=== PATIENT | female | born 2005 | race Caucasian/White ===

== ENCOUNTER 2024-01-06 13:31 | Emergency (ER) | payer BC, OTHER ==
--- NOTE | 2024-01-06 15:49 | ED ---
URI HPI - General Chief Complaint: Upper Respiratory Infection Stated Complaint: congestion Time Seen by Provider: 01/06/24 15:09 Source: patient, RN notes reviewed Mode of arrival: ambulatory Limitations: no limitations - History of Present Illness Initial Comments: This is a 18-year-old female who presents to the emergency department for URI symptoms. Reports coughing, congestion, nausea, and vomiting starting 3 days ago. She is taking [id number] medication for symptoms, but is unable to keep anything down as result of the nausea. Denies any associated abdominal pain. Denies any fevers/chills or sick contacts. Denies any chest pain or shortness of breath. MD Complaint: cough, nasal congestion - Related Data Previous Rx's Medication Instructions Recorded Benzonatate [Tessalon Perle] 200 mg PO TID PRN #30 capsule 01/06/24 Ondansetron Odt [Zofran Odt] 4 mg PO Q8HR PRN #20 tab 01/06/24 Allergies Allergy/AdvReac Type Severity Reaction Status Date / Time No Known Allergies Allergy Verified 01/06/24 14:56 Review of Systems ROS Statement: Those systems with pertinent positive or pertinent negative responses have been documented in the HPI. ROS Other: All systems not noted in ROS Statement are negative. Past Medical History Past Medical History: No Reported History History of Any Multi-Drug Resistant Organisms: None Reported Past Surgical History: No Surgical Hx Reported Past Psychological History: No Psychological Hx Reported Smoking Status: Vaper Past Alcohol Use History: None Reported Past Drug Use History: None Reported General Exam Limitations: no limitations General appearance: alert, in no apparent distress Head exam: Present: atraumatic, normocephalic, normal inspection Respiratory exam: Present: normal lung sounds bilaterally. Absent: respiratory distress, wheezes, rales, rhonchi, stridor Cardiovascular Exam: Present: regular rate, normal rhythm, normal heart sounds. Absent: systolic murmur, diastolic murmur, rubs, gallop, clicks GI/Abdominal exam: Present: soft, normal bowel sounds. Absent: distended, tenderness, guarding, rebound, rigid Neurological exam: Present: alert, oriented X3, CN II-XII intact Psychiatric exam: Present: normal affect, normal mood Skin exam: Present: warm, dry, intact, normal color. Absent: rash Course Vital Signs 01/06/24 01/06/24 14:53 16:34 Temperature 98.4 F 98.2 F Pulse Rate 76 77 Respiratory 22 18 Rate Blood Pressure 173/110 148/89 O2 Sat by Pulse 99 99 Oximetry Medical Decision Making - Medical Decision Making This is a 18-year-old female who presents to the emergency department for coughing and congestion. Was pt. sent in by a medical professional or institution? @ -No Did you speak to anyone other than the patient for history? @ -No Did you review nursing and triage notes? @ -Yes, and I agree, it is accurate with regards to the patient's symptoms. Were old charts reviewed? @ -No Differential Diagnosis? @ -Differential Cough: Influenza, Covid, RSV, croup, allergic rhinitis, GERD, pneumonia, bronchitis, COPD, viral pharyngitis, streptococcal pharyngitis, this is not meant to be an a ll-inclusive list. EKG interpreted by me (3pts min.)? @ -Not obtained X-rays interpreted by me (1pt min.)? @ -Chest x-ray obtained, my interpretation identifies no localized consolidations or infiltrates. CT interpreted by me (1pt min.)? @ -Not obtained U/S interpreted by me (1pt. min.)? @ -Not obtained What testing was considered but not performed? (CT, X-rays, U/S, labs)? Why? @ -None What meds were considered but not given? Why? @ -None Did you discuss the management of the patient with other professionals? @ -No Did you reconcile home meds? @ -No Was smoking cessation discussed for >3mins.? @ -No Was critical care preformed (if so, how long)? @ -No Were there social determinants of health that impacted care today? How? (Homelessness, low income, unemployed, alcoholism, drug addiction, transportation, low edu. Level, literacy, decrease access to med. care, intermediate, rehab)? @ -No Was there de-escalation of care discussed even if they declined? (Discuss DNR or withdrawal of care, Hospice)? @ -No What co-morbidities impacted this encounter? (DM, HTN, Smoking, COPD, CAD, Cancer, CVA, Hep., AIDS, mental health diagnosis, sleep apnea, morbid obesity)? @ -None Was patient admitted / discharged? @ -Discharged. COVID, influenza, and RSV testing negative. Rapid strep test negative. Chest x-ray reveals no acute process. ODT Zofran given in the emergency department with improvement in nausea. Symptoms likely viral in [place]ie [place]. Prescription for Zofran and Tessalon Perles provided. Advised getting plenty of rest and drinking plenty of fluids. Patient discharged home in stable condition. Case discussed with ED attending Dr. Hansen. Return precautions reviewed in depth, the patient is instructed to return to the emergency department with any new, worsening, or concerning symptoms. Patient verbalized understanding. Undiagnosed new problem with uncertain prognosis? @ -None Drug Therapy requiring intensive monitoring for toxicity (Heparin, Nitro, Insulin, Cardizem)? @ -None Were any procedures done? @ -None Diagnosis/symptom? @ -Viral URI, nausea and vomiting Acute, or Chronic, or Acute on Chronic? @ -Acute Uncomplicated (without systemic symptoms) or Complicated (systemic symptoms)? @ -Uncomplicated Side effects of treatment? @ -None Exacerbation, Progression, or Severe Exacerbation] @ -Not applicable Poses a threat to life or bodily function? @ -No - Lab Data Lab Results 01/06/24 01/06/24 Range/Units 15:05 15:22 Influenza Type A (PCR) Not Detected (Not Detectd) Influenza Type B (PCR) Not Detected (Not Detectd) RSV (PCR) Not Detected (Not Detectd) SARS-CoV-2 (PCR) Not Detected (Not Detectd) Group A Strep (PCR) NOT DETECTED (Not Detectd) - Radiology Data Radiology results: report reviewed, image reviewed Disposition Clinical Impression: Upper respiratory tract infection Disposition: HOME SELF-CARE Instructions (If sedation given, give patient instructions): Upper Respiratory Infection (ED) Additional Instructions: Return to the emergency department with any new, worsening, or concerning symptoms. Take the Tessalon Perles up to every 8 hours as needed for coughing. You can take the Zofran up to every 8 hours as needed for nausea and vomiting. Slowly advance your diet as tolerated and remain well-hydrated. Follow up with your primary care provider in 1-2 days. Prescriptions: Benzonatate [Tessalon Perle] 200 mg PO TID PRN #30 capsule PRN Reason: Cough Ondansetron Odt [Zofran Odt] 4 mg PO Q8HR PRN #20 tab PRN Reason: Nausea And Vomiting Is patient prescribed a controlled substance at d/c from ED?: No Referrals: None,Stated [Primary Care Provider] - 1-2 days Time of Disposition: 16:23
[2024-01-06] MEDS: ONDANSETRON ODT 4 MG TAB PO STA (15:50)
--- NOTE | 2024-01-06 15:53 | XR ---
EXAMINATION TYPE: XR chest 2V DATE OF EXAM: 01/06/2024 3:40 PM CLINICAL INDICATION: Female, 18 years old with history of Cough; [facility] COMPARISON: None TECHNIQUE: XR chest 2V Frontal view of the chest. FINDINGS: Lungs/Pleura: There is no evidence of pleural effusion, focal consolidation, or pneumothorax. Pulmonary vascularity: Unremarkable. Heart/mediastinum: Cardiomediastinal silhouette is unremarkable. Musculoskeletal: No acute osseous pathology. IMPRESSION: No acute cardiopulmonary disease/process. [facility], , 01/06/2024 3:51 PM
[2024-01-06 16:35] VITALS: BP 148/89; PULSE 77; RESP 18; TEMP 98.2
== END 2024-01-06 16:35 | disposition home or self-care (01) ==
LOC: EC 13:31
CPT/HCPCS: 71046; 87636; 87651; 99284

== ENCOUNTER 2024-09-09 18:30 | Emergency (ER) | payer OTHER ==
--- NOTE | 2024-09-09 19:26 | ED ---
Nausea/Vomiting/Diarrhea HPI - General Chief complaint: Nausea/Vomiting/Diarrhea Stated complaint: 7 weeks,Vomiting blood Time Seen by Provider: 09/09/24 18:59 Source: patient, RN notes reviewed Mode of arrival: ambulatory Limitations: no limitations - History of Present Illness Initial comments: This is a 19-year-old female who presents to the emergency department for nausea and vomiting. Patient is approximately 7 weeks and . States that she has had nausea and vomiting for the last couple of weeks. Today when she threw up she felt like there was a couple streaks of blood, which has only happened once. However, she does continue to feel nauseous. She has generalized abdominal cramping. Denies any vaginal bleeding. She has not yet been established with an [facility]. MD complaint: nausea, vomiting - Related Data Previous Rx's Medication Instructions Recorded Benzonatate [Tessalon Perle] 200 mg PO TID PRN #30 capsule 01/06/24 Ondansetron Odt [Zofran Odt] 4 mg PO Q8HR PRN #20 tab 01/06/24 Cephalexin [Keflex] 500 mg PO Q6HR 7 Days #28 cap 09/09/24 Metoclopramide [Reglan] 10 mg PO Q6H PRN #30 tab 09/09/24 Allergies Allergy/AdvReac Type Severity Reaction Status Date / Time No Known Allergies Allergy Verified 09/09/24 18:58 Review of Systems ROS Statement: Those systems with pertinent positive or pertinent negative responses have been documented in the HPI. ROS Other: All systems not noted in ROS Statement are negative. Past Medical History Past Medical History: No Reported History History of Any Multi-Drug Resistant Organisms: None Reported Past Surgical History: No Surgical Hx Reported Past Psychological History: No Psychological Hx Reported Smoking Status: Vaper Past Alcohol Use History: None Reported Past Drug Use History: Marijuana General Exam Limitations: no limitations General appearance: alert, in no apparent distress Head exam: Present: atraumatic, normocephalic, normal inspection Respiratory exam: Present: normal lung sounds bilaterally. Absent: respiratory distress, wheezes, rales, rhonchi, stridor Cardiovascular Exam: Present: regular rate, normal rhythm Neurological exam: Present: alert, oriented X3, CN II-XII intact Psychiatric exam: Present: normal affect, normal mood Skin exam: Present: warm, dry, intact, normal color. Absent: rash Course Vital Signs 09/09/24 09/09/24 09/09/24 18:53 19:53 21:39 Temperature 99.3 F 98.6 F 98.3 F Pulse Rate 83 78 73 Respiratory 16 16 14 Rate Blood Pressure 153/76 135/87 128/76 O2 Sat by Pulse 100 98 100 Oximetry Medical Decision Making - Medical Decision Making This is a 19 year old female who presents to the emergency department for nausea and vomiting in . Was pt. sent in by a medical professional or institution? @ -No Did you speak to anyone other than the patient for history? @ -No Did you review nursing and triage notes? @ -Yes, and I agree, it is accurate with regards to the patient's symptoms. Were old charts reviewed? @ -No Differential Diagnosis? @ -Differential Nausea and Vomiting: Gastroenteritis, cholecystitis, appendicitis, pancreatitis, migraine, benign positional vertigo, food borne illness, pyelonephritis, irritable bowel syndrome, influenza, Covid, GERD, incarcerated hernia, intestinal obstruction, this is not meant to be an all-inclusive list. EKG interpreted by me (3pts min.)? @ -Not obtained X-rays interpreted by me (1pt min.)? @ -Not obtained CT interpreted by me (1pt min.)? @ -Not obtained U/S interpreted by me (1pt. min.)? @ -Obstetrics ultrasound obtained. My interpretation identifies a single live intrauterine . What testing was considered but not performed? (CT, X-rays, U/S, labs)? Why? @ -None What meds were considered but not given? Why? @ -None Did you discuss the management of the patient with other professionals? @ -No Did you reconcile home meds? @ -No Was smoking cessation discussed for >3mins.? @ -No Was critical care preformed (if so, how long)? @ -No Were there social determinants of health that impacted care today? How? (Homelessness, low income, unemployed, alcoholism, drug addiction, transportation, low edu. Level, literacy, decrease access to med. care, senior living, rehab)? @ -No Was there de-escalation of care discussed even if they declined? (Discuss DNR or withdrawal of care, Hospice)? @ -No What co-morbidities impacted this encounter? (DM, HTN, Smoking, COPD, CAD, Cancer, CVA, Hep., AIDS, mental health diagnosis, sleep apnea, morbid obesity)? @ -None Was patient admitted / discharged? @ -Discharged. Lab work demonstrates mild leukocytosis, and [place] [address]. Urinalysis is grossly contaminated, but potentially suggestive of infection. Urine sent for culture. Obstetrics ultrasound obtained demonstrating a single intrauterine gestation estimated at 6 weeks 6 days. Findings reviewed with the patient. Symptoms were well- controlled with IV fluids, Benadryl, vitamin B6, and Reglan. Advised that because she is we will treat her for a urinary tract infection and Keflex was prescribed. Reglan prescribed for any additional nausea. Also advised [id number]-[id number] vitamin B6 and Unisom. She was also given information to become established with an [facility] for ongoing obstetrics care. Patient dis charged home in stable condition. Case discussed with ED attending Dr. Escobar. Return precautions reviewed in depth, the patient is instructed to return to the emergency department with any new, worsening, or concerning symptoms. Patient verbalized understanding. Undiagnosed new problem with uncertain prognosis? @ -None Drug Therapy requiring intensive monitoring for toxicity (Heparin, Nitro, Insulin, Cardizem)? @ -None Were any procedures done? @ -None Diagnosis/symptom? @ -Nausea and vomiting in , UTI in Acute, or Chronic, or Acute on Chronic? @ -Acute Uncomplicated (without systemic symptoms) or Complicated (systemic symptoms)? @ -Uncomplicated Side effects of treatment? @ -None Exacerbation, Progression, or Severe Exacerbation] @ -Not applicable Poses a threat to life or bodily function? @ -No - Lab Data Result diagrams: 09/09/24 19:26 09/09/24 19:26 Lab Results 09/09/24 09/09/24 09/09/24 Range/Units 19:26 19:26 19:51 WBC 11.45 H (4.50-10.00) 10*3/uL RBC 4.91 (4.10-5.20) 10*6/uL Hgb 14.7 (12.0-15.0) g/dL Hct 42.0 (37.2-46.3) % MCV 85.5 (80.0-97.0) fL MCH 29.9 (27.0-32.0) pg MCHC 35.0 (32.0-37.0) g/dL Plt Count 328 (140-440) 10*3/uL MPV 9.8 (9.5-12.2) fL Immature Gran % (Auto) 0.4 % Neutrophils % 78.8 % Lymphocytes % 14.7 % Monocytes % 5.5 % Eosinophils % 0.1 % Basophils % 0.5 % Immature Gran # 0.05 H (0.00-0.04) 10*3/uL Neutrophils # 9.02 H (1.80-7.70) 10*3/uL Lymphocytes # 1.68 (0.90-5.00) 10*3/uL Monocytes # 0.63 (0.20-1.00) 10*3/uL Eosinophils # 0.01 L (0.04-0.35) 10*3/uL Basophils # 0.06 (0.00-0.10) 10*3/uL Immature Plt Fraction 2.1 (1.1-6.1) % Sodium 137 (137-145) mmol/L Potassium 3.8 (3.5-5.1) mmol/L Chloride 101 (98-107) mmol/L Carbon Dioxide 20 L (22-30) mmol/L Anion Gap 16 mmol/L BUN 8 (7-17) mg/dL Creatinine 0.60 (0.52-1.04) mg/dL Est GFR (CKD-EPI)AfAm >90 (>60 ml/min/1.73 sqM) Est GFR (CKD-EPI)NonAf >90 (>60 ml/min/1.73 sqM) Glucose 134 H (74-99) mg/dL Calcium 10.2 (8.4-10.2) mg/dL Total Bilirubin 0.6 (0.2-1.3) mg/dL AST 24 (14-36) U/L ALT 19 (4-34) U/L Alkaline Phosphatase 96 (38-126) U/L Total Protein 8.2 (6.3-8.2) g/dL Albumin 5.0 (3.5-5.0) g/dL HCG, Quant 86994.9 mIU/mL Urine Color Yellow Urine Appearance Cloudy H (Clear) Urine pH 6.0 (5.0-8.0) Ur Specific [place] 1.036 H (1.001-1.035) Urine Protein 1+ H (Negative) Urine Glucose (UA) Negative (Negative) Urine Ketones 3+ H (Negative) Urine Blood Negative (Negative) Urine Nitrite Negative (Negative) Urine Bilirubin Negative (Negative) Urine Urobilinogen 2.0 (<2.0) mg/dL Ur Leukocyte Esterase Negative (Negative) Urine RBC 32 H (0-5) /hpf Urine WBC 23 H (0-5) /hpf Ur Squamous Epith Cells 17 H (0-4) /hpf Urine Bacteria Moderate H (None) /hpf Urine Mucus Many H (None) /hpf - Radiology Data Radiology results: report reviewed, image reviewed Disposition Clinical Impression: Nausea and vomiting during , UTI in Disposition: HOME SELF-CARE Instructions (If sedation given, give patient instructions): Nausea and Vomiting in (ED), Urinary Tract Infection in (ED) Additional Instructions: Return to the emergency department with any new, worsening, or concerning symptoms. Take the antibiotic as prescribed for 7 days. Take the Reglan up to every 6 hours as needed for nausea and vomiting. Make sure you become established with an [facility] for ongoing obstetrics care. Follow up with your primary care provider in 1-2 days. Prescriptions: Cephalexin [Keflex] 500 mg PO Q6HR 7 Days #28 cap Metoclopramide [Reglan] 10 mg PO Q6H PRN #30 tab PRN Reason: Nausea And Vomiting Is patient prescribed a controlled substance at d/c from ED?: No Referrals: Dm Smallwood MD [Primary Care Provider] - 1-2 days Jasmin Dickinson DO [Doctor of Osteopathic Medicine] - 1-2 days Time of Disposition: 21:28
[2024-09-09] MEDS: SODIUM CHLORIDE 0.9% 1,000 ML IV SCH (19:41)
[2024-09-09] MEDS: diphenhydrAMINE 50 MG/ML 1 ML VIAL IVP STA (19:42)
[2024-09-09] MEDS: PANTOPRAZOLE 40 MG/10 ML VIAL IVP STA (19:42)
[2024-09-09] MEDS: PYRIDOXINE 100 MG/ML 1 ML VIAL IVP STA (19:43)
[2024-09-09] MEDS: METOCLOPRAMIDE 5 MG/ML 2 ML VIAL IVP STA (19:44)
[2024-09-09 19:48] LABS: Basophils # (A) 0.06 10*3/uL (0.00-0.10); Basophils % (A) 0.5 %; Eosinophils # (A) 0.01 10*3/uL (0.04-0.35); Eosinophils % (A) 0.1 %; HGB 14.7 g/dL (12.0-15.0); Immature Platelet Fraction 2.1 % (1.1-6.1); Lymphocytes # (A) 1.68 10*3/uL (0.90-5.00); Lymphocytes % (A) 14.7 %; MCH 29.9 pg (27.0-32.0); MCV 85.5 fL (80.0-97.0); Mean Platelet Volume 9.8 fL (9.5-12.2); Monocytes # (A) 0.63 10*3/uL (0.20-1.00); Monocytes % (A) 5.5 %; Neutrophils # (A) 9.02 10*3/uL (1.80-7.70); Neutrophils % (A) 78.8 %; Platelet Count 328 10*3/uL (140-440); RBC 4.91 10*6/uL (4.10-5.20); RDW 12.4 % (11.5-14.5); WBC 11.45 10*3/uL (4.50-10.00)
[2024-09-09 19:49] LABS: ALT 19 U/L (4-34); AST 24 U/L (14-36); African American GFR (CKD) >90 (>60 ml/min/1.73 sqM); Alkaline Phosphatase 96 U/L (38-126); Anion Gap 16 mmol/L; Blood Urea Nitrogen 8 mg/dL (7-17); Calcium 10.2 mg/dL (8.4-10.2); Carbon Dioxide 20 mmol/L (22-30); Chloride 101 mmol/L (98-107); Glucose 134 mg/dL (74-99); Non-African American GFR(CKD) >90 (>60 ml/min/1.73 sqM); Potassium 3.8 mmol/L (3.5-5.1); Sodium 137 mmol/L (137-145); Total Bilirubin 0.6 mg/dL (0.2-1.3); Total Protein 8.2 g/dL (6.3-8.2)
[2024-09-09 20:10] LABS: Appearance,Urine Cloudy (Clear); Bacteria,Urine Moderate /hpf; Bilirubin,Urine Negative (Negative); Blood,Urine Negative (Negative); Color,Urine Yellow; Glucose,Urine (UA) Negative (Negative); Ketones,Urine 3+ (Negative); Leukocyte Esterase,Urine Negative (Negative); Mucus,Urine Many /hpf; Nitrite,Urine Negative (Negative); Protein,Urine 1+ (Negative); RBC,Urine 32 /hpf (0-5); Specific Gravity,Urine 1.036 (1.001-1.035); Squamous Epithelial Cell,Urine 17 /hpf (0-4); WBC,Urine 23 /hpf (0-5)
[2024-09-09 20:34] LABS: HCG,Quantitative Serum 62891.9 mIU/mL
--- NOTE | 2024-09-09 21:18 | US ---
EXAMINATION TYPE: Transabdominal DATE OF EXAM: 09/09/2024 8:56 PM COMPARISON: NONE CLINICAL INDICATION: Female, 19 years old with history of Pelvic pain, 7 weeks; pelvic pain began 1.5 weeks ago TECHNIQUE: Transabdominal (TA) with grayscale and color Doppler imaging including first trimester pre gnancy. FINDINGS: EXAM MEASUREMENTS: GESTATIONAL AGE / DATING Physician Established: Not yet established Dates by LMP: (7 weeks/0 days) EDC: 04/28/25 Dates by First Scan: No previous this is first scan Dates by Current Scan for: (6 weeks/6 days) EDC: 04/29/25 MATERNAL ANATOMY Uterus: 8.1x3.8x5.8 Right Ovary: 1.9x1.2x1.5cm Left Ovary: 7.3x4.0x5.2cm There are two similar prominent simple appearing cysts. Largest measures 4. 0x4.2x4.9cm Post CDS / Adnexa: wnl Presence of free fluid: no Presence of corpus luteal cyst: no Presence of subchorionic bleed: no GESTATION / SURVEY CRL: 0.85 (6 weeks/6 days) Gestational Sac morphology: unremarkable Yolk Sac (normal less than 6mm): 3mm Cardiac Activity/Heart Rate: 121 bpm Rhythm: Normal IUP: Viable IUP Date of LMP: 07/22/24 Beta HcG (if available): Not available at this time Ovarian cysts are present. IMPRESSION: 1. Single intrauterine gestation estimated at 6 weeks 6 days gestation based on crown-rump length. Ca rdiac activity measures 122 bpm. [facility], , 09/09/2024 9:16 PM
[2024-09-09] MEDS: CEPHALEXIN 500MG STARTER PACK 4 CAP BTL PO STA (21:33)
[2024-09-09] MEDS: ONDANSETRON 4 MG ODT STARTER PACK 2 TAB BTL PO STA (21:33)
[2024-09-09 21:41] VITALS: BP 128/76; PULSE 73; RESP 14; TEMP 98.3
== END 2024-09-09 21:40 | disposition home or self-care (01) ==
LOC: EC 18:30
DX: O21.9 Vomiting of pregnancy, unspecified (principal); O23.41 Unspecified infection of urinary tract in pregnancy, first trimester; O99.331 Smoking (tobacco) complicating pregnancy, first trimester; F17.290 Nicotine dependence, other tobacco product, uncomplicated
CPT/HCPCS: 36415; 80053; 85025; 81001; 84702; 87086; 76801; 99284; 96374; 96375; 96361; J1200; J3415; J2765; S0119; J2470

== ENCOUNTER 2024-09-14 06:10 | Emergency (ER) | payer OTHER ==
[2024-09-14 06:31] VITALS: RESP 18
[2024-09-14] MEDS: SODIUM CHLORIDE 0.9% 1,000 ML IV SCH (07:22)
--- NOTE | 2024-09-14 07:30 | ED ---
Nausea/Vomiting/Diarrhea HPI - General Chief complaint: Nausea/Vomiting/Diarrhea Stated complaint: Nausea Time Seen by Provider: 09/14/24 06:16 Source: patient, RN notes reviewed Mode of arrival: ambulatory Limitations: no limitations - History of Present Illness Initial comments: 19-year-old female presents emergency department complaint of nausea vomiting dehydration. Patient states that she was eval she was she has been in the emergency department for similar complaints of nausea and vomiting states has been trying Reglan at home with no relief. Patient states that only has to take Zofran. Patient denies any abdominal pain no vaginal bleeding no other complaints. - Related Data Previous Rx's Medication Instructions Recorded Benzonatate [Tessalon Perle] 200 mg PO TID PRN #30 capsule 01/06/24 Ondansetron Odt [Zofran Odt] 4 mg PO Q8HR PRN #20 tab 01/06/24 Cephalexin [Keflex] 500 mg PO Q6HR 7 Days #28 cap 09/09/24 Metoclopramide [Reglan] 10 mg PO Q6H PRN #30 tab 09/09/24 Ondansetron Odt [Zofran Odt] 4 mg PO Q8HR PRN #14 tab 09/14/24 Allergies Allergy/AdvReac Type Severity Reaction Status Date / Time No Known Allergies Allergy Verified 09/14/24 06:28 Review of Systems ROS Statement: Those systems with pertinent positive or pertinent negative responses have been documented in the HPI. ROS Other: All systems not noted in ROS Statement are negative. Past Medical History Past Medical History: No Reported History History of Any Multi-Drug Resistant Organisms: None Reported Past Surgical History: No Surgical Hx Reported Past Psychological History: No Psychological Hx Reported Smoking Status: Vaper Past Alcohol Use History: None Reported Past Drug Use History: Marijuana General Exam Limitations: no limitations General appearance: alert, in no apparent distress Head exam: Present: atraumatic, normocephalic, normal inspection Neck exam: Present: normal inspection. Absent: tenderness, meningismus, lymphadenopathy Respiratory exam: Present: normal lung sounds bilaterally. Absent: respiratory distress, wheezes, rales, rhonchi, stridor Cardiovascular Exam: Present: regular rate, normal rhythm, normal heart sounds. Absent: systolic murmur, diastolic murmur, rubs, gallop, clicks GI/Abdominal exam: Present: soft, normal bowel sounds. Absent: distended, tenderness, guarding, rebound, rigid Neurological exam: Present: alert, oriented X3 Skin exam: Present: warm, dry, intact, normal color. Absent: rash Course Vital Signs 09/14/24 06:29 Temperature 98.1 F Pulse Rate 78 Respiratory 18 Rate Blood Pressure 152/115 O2 Sat by Pulse 98 Oximetry Medical Decision Making - Medical Decision Making Was pt. sent in by a medical professional or institution (, PA, DIRECTOR FINANCIAL SERVICES, urgent care, hospital, or [facility]...) When possible be specific @ -No Did you speak to anyone other than the patient for history (EMS, parent, family, police, friend...)? What history was obtained from this source @ -No Did you review nursing and triage notes (agree or disagree)? Why? @ -I reviewed and agree with nursing and triage notes Were old charts reviewed (outside hosp., previous admission, EMS record, old EKG, old radiological studies, urgent care reports/EKG's, [facility] records)? Report findings @ -No old charts were reviewed Differential Diagnosis (chest pain, altered mental status, abdominal pain women, abdominal pain men, vaginal bleeding, weakness, fever, dyspnea, syncope, headache, dizziness, GI bleed, back pain, seizure, CVA, palpatations, mental health, musculoskeletal)? @Differential Abdominal Pain Women: Appendicitis, Cholecystitis, diverticulosis, ischemic bowel, pancreatitis, hepatitis, UTI, gastroenteritis, AAA, incarcerated hernia, bowel obstruction, constipation, inflammatory bowel, hepatitis, peptic ulcer disease, splenic infarction, perforated viscus, vulvitis, ovarian torsion, PID, kidney stone, placenta abruption, this is not meant to be an all-inclusive list EKG interpreted by me (3pts min.). @ -None X-rays interpreted by me (1pt min.). @ -None done CT interpreted by me (1pt min.). @ -None done U/S interpreted by me (1pt. min.). @ -None done What testing was considered but not performed or refused? (CT, X-rays, U/S, labs)? Why? @ -None What meds were considered but not given or refused? Why? @ -None Did you discuss the management of the patient with other professionals (prof essionals i.e. , PA, DIRECTOR FINANCIAL SERVICES, lab, RT, psych nurse, home health care social worker, environmental department manager, teacher, chief innovation officer, keycase assembler)? Give summary @ -No Was smoking cessation discussed for >3mins.? @ -No Was critical care preformed (if so, how long)? @ -No Were there social determinants of health that impacted care today? How? (Homelessness, low income, unemployed, alcoholism, drug addiction, transportation, low edu. Level, literacy, decrease access to med. care, fpc, rehab)? @ -No Was there de-escalation of care discussed even if they declined (Discuss DNR or withdrawal of care, Hospice)? DNR status @ -No What co-morbidities impacted this encounter? (DM, HTN, Smoking, COPD, CAD, Cancer, CVA, ARF, Chemo, Hep., AIDS, mental health diagnosis, sleep apnea, morbid obesity)? @ -None Was patient admitted / discharged? Hospital course, mention meds given and route, prescriptions, significant lab abnormalities, going to OR and other pertinent info. @ -Discharge patient feels great. IV fluids and antiemetics. Patient is requesting Zofran at home she understands risk of taking Zofran during . She feels comfortable starting Zofran and follow-up with [employer] return for as discussed. Patient does have acute dehydration. Patient is on current antibiotics does have noted bacteria in . Undiagnosed new problem with uncertain prognosis? @ -No Drug Therapy requiring intensive monitoring for toxicity (Heparin, Nitro, Insulin, Cardizem)? @ -No Were any procedures done? @ -No Diagnosis/symptom? @ -Nausea vomiting , dehydration Acute, or Chronic, or Acute on Chronic? @ -[Acute Uncomplicated (without systemic symptoms) or Complicated (systemic symptoms)? @ -Complicated Side effects of treatment? @ -No Exacerbation, Progression, or Severe Exacerbation? @ -No Poses a threat to life or bodily function? How? (Chest pain, [place], [place], pneumonia, PE, COPD, DKA, ARF, appy, cholecystitis, CVA, Diverticulitis, Homicidal, Suicidal, threat to staff... and all critical care pts) @ -No - Lab Data Result diagrams: 09/14/24 07:15 09/14/24 07:15 Lab Results 06/25/25 06/25/25 06/25/25 Range/Units 07:15 07:15 07:15 WBC 15.75 H (4.50-10.00) 10*3/uL RBC 4.95 (4.10-5.20) 10*6/uL Hgb 14.8 (12.0-15.0) g/dL Hct 42.6 (37.2-46.3) % MCV 86.1 (80.0-97.0) fL MCH 29.9 (27.0-32.0) pg MCHC 34.7 (32.0-37.0) g/dL Plt Count 393 (140-440) 10*3/uL MPV 10.0 (9.5-12.2) fL Immature Gran % (Auto) 0.4 % Neutrophils % 86.2 % Lymphocytes % 7.9 % Monocytes % 5.3 % Eosinophils % 0.0 % Basophils % 0.2 % Immature Gran # 0.06 H (0.00-0.04) 10*3/uL Neutrophils # 13.57 H (1.80-7.70) 10*3/uL Lymphocytes # 1.25 (0.90-5.00) 10*3/uL Monocytes # 0.84 (0.20-1.00) 10*3/uL Eosinophils # 0.00 L (0.04-0.35) 10*3/uL Basophils # 0.03 (0.00-0.10) 10*3/uL Sodium 138 (137-145) mmol/L Potassium 3.8 (3.5-5.1) mmol/L Chloride 100 (98-107) mmol/L Carbon Dioxide 19 L (22-30) mmol/L Anion Gap 19 mmol/L BUN 10 (7-17) mg/dL Creatinine 0.61 (0.52-1.04) mg/dL Est GFR (CKD-EPI)AfAm >90 (>60 ml/min/1.73 sqM) Est GFR (CKD-EPI)NonAf >90 (>60 ml/min/1.73 sqM) Glucose 142 H (74-99) mg/dL Calcium 10.4 H (8.4-10.2) mg/dL Total Bilirubin 0.7 (0.2-1.3) mg/dL AST 21 (14-36) U/L ALT 19 (4-34) U/L Alkaline Phosphatase 84 (38-126) U/L Total Protein 8.7 H (6.3-8.2) g/dL Albumin 5.4 H (3.5-5.0) g/dL Urine Color Yellow Urine Appearance Cloudy H (Clear) Urine pH 5.5 (5.0-8.0) Ur Specific [place] 1.037 H (1.001-1.035) Urine Protein 1+ H (Negative) Urine Glucose (UA) Negative (Negative) Urine Ketones 4+ H (Negative) Urine Blood Negative (Negative) Urine Nitrite Negative (Negative) Urine Bilirubin Negative (Negative) Urine Urobilinogen 2.0 (<2.0) mg/dL Ur Leukocyte Esterase Negative (Negative) Urine RBC 2 (0-5) /hpf Urine WBC 2 (0-5) /hpf Ur Squamous Epith Cells 12 H (0-4) /hpf Urine Bacteria Few H (None) /hpf Hyaline Casts 8 H (0-2) /lpf Urine Mucus Few H (None) /hpf Disposition Clinical Impression: Nausea and vomiting during Disposition: HOME SELF-CARE Condition: Stable Instructions (If sedation given, give patient instructions): Nausea and Vomiting in (ED) Additional Instructions: Please return to the Emergency Department if symptoms worsen or any other concerns. Prescriptions: Ondansetron Odt [Zofran Odt] 4 mg PO Q8HR PRN #14 tab PRN Reason: Nausea Is patient prescribed a controlled substance at d/c from ED?: No Referrals: Dm Smallwood MD [Primary Care Provider] - 1-2 days Time of Disposition: 08:42
[2024-09-14 07:32] LABS: Basophils # (A) 0.03 10*3/uL (0.00-0.10); Basophils % (A) 0.2 %; HCT 42.6 % (37.2-46.3); HGB 14.8 g/dL (12.0-15.0); Lymphocytes # (A) 1.25 10*3/uL (0.90-5.00); Lymphocytes % (A) 7.9 %; MCH 29.9 pg (27.0-32.0); MCHC 34.7 g/dL (32.0-37.0); MCV 86.1 fL (80.0-97.0); Monocytes # (A) 0.84 10*3/uL (0.20-1.00); Monocytes % (A) 5.3 %; Neutrophils # (A) 13.57 10*3/uL (1.80-7.70); Neutrophils % (A) 86.2 %; Platelet Count 393 10*3/uL (140-440); RBC 4.95 10*6/uL (4.10-5.20); RDW 12.1 % (11.5-14.5); WBC 15.75 10*3/uL (4.50-10.00)
[2024-09-14 07:37] LABS: Appearance,Urine Cloudy (Clear); Bacteria,Urine Few /hpf; Bilirubin,Urine Negative (Negative); Blood,Urine Negative (Negative); Color,Urine Yellow; Glucose,Urine (UA) Negative (Negative); Hyaline Casts,Urine 8 /lpf (0-2); Ketones,Urine 4+ (Negative); Leukocyte Esterase,Urine Negative (Negative); Mucus,Urine Few /hpf; Nitrite,Urine Negative (Negative); PH, Urine 5.5 (5.0-8.0); Protein,Urine 1+ (Negative); RBC,Urine 2 /hpf (0-5); Specific Gravity,Urine 1.037 (1.001-1.035); Squamous Epithelial Cell,Urine 12 /hpf (0-4); WBC,Urine 2 /hpf (0-5)
[2024-09-14] MEDS: METOCLOPRAMIDE 5 MG/ML 2 ML VIAL IVP STA (07:42)
[2024-09-14] MEDS: diphenhydrAMINE 50 MG/ML 1 ML VIAL IVP STA (07:42)
[2024-09-14 07:49] LABS: ALT 19 U/L (4-34); AST 21 U/L (14-36); African American GFR (CKD) >90 (>60 ml/min/1.73 sqM); Albumin 5.4 g/dL (3.5-5.0); Alkaline Phosphatase 84 U/L (38-126); Anion Gap 19 mmol/L; Blood Urea Nitrogen 10 mg/dL (7-17); Calcium 10.4 mg/dL (8.4-10.2); Carbon Dioxide 19 mmol/L (22-30); Chloride 100 mmol/L (98-107); Glucose 142 mg/dL (74-99); Non-African American GFR(CKD) >90 (>60 ml/min/1.73 sqM); Potassium 3.8 mmol/L (3.5-5.1); Sodium 138 mmol/L (137-145); Total Bilirubin 0.7 mg/dL (0.2-1.3); Total Protein 8.7 g/dL (6.3-8.2)
[2024-09-14 09:38] VITALS: BP 148/90; PULSE 72; TEMP 98
[2024-09-14 14:47] LABS: Amphetamine Screen,Urine Not Detected (NotDetected); Barbiturate Screen,Urine Not Detected (NotDetected); Benzodiazepines Screen,Urine Not Detected (NotDetected); Cocaine Screen,Urine Not Detected (NotDetected); Methadone Screen, Urine Not Detected (NotDetected); Opiate Screen,Urine Not Detected (NotDetected); Oxycodone Screen, Urine Not Detected (NotDetected); Phencyclidine Screen,Urine Not Detected (NotDetected); Tricyclic Antidepressant,Urine Not Detected (NotDetected); Urn Cannabinoid Scrn Detected (NotDetected)
== END 2024-09-14 09:37 | disposition home or self-care (01) ==
LOC: EC 06:10
DX: O21.9 Vomiting of pregnancy, unspecified (principal); O99.280 Endocrine, nutritional and metabolic diseases complicating pregnancy, unspecified trimester; E86.0 Dehydration; O99.330 Smoking (tobacco) complicating pregnancy, unspecified trimester; F17.290 Nicotine dependence, other tobacco product, uncomplicated
CPT/HCPCS: 36415; 80053; 85025; 81001; 80306; 99284; 96374; 96375; 96361 ×2; J1200; J2765

== ENCOUNTER 2024-10-06 11:33 | Emergency (ER) | payer OTHER ==
--- NOTE | 2024-10-06 12:20 | ED ---
Nausea/Vomiting/Diarrhea HPI - General Chief complaint: Nausea/Vomiting/Diarrhea Stated complaint: Vomiting-10 weeks preg Time Seen by Provider: 10/06/24 11:57 Source: patient, RN notes reviewed Mode of arrival: ambulatory Limitations: no limitations - History of Present Illness Initial comments: 19-year-old female with no reported medical conditions presenting to the emergency department approximately 10 weeks gestation for complaints of persistent nausea and vomiting over the past 2 days. Patient states that she has been experiencing nausea and vomiting over the last few weeks however the past 2 days she has been unable to keep down foods and liquids and is concerned that she is dehydrated. Endorses abdominal epigastric cramping prior to emesis. She denies [place] abdominal pain, dysuria, hematuria, creased urinary frequency or urgency, fevers, chills, diarrhea or constipation. States that she has Zofran at home however this has not been helping. Patient has had an ultrasound revealing an intrauterine . Follows up with OB on Thursday. - Related Data Previous Rx's Medication Instructions Recorded Benzonatate [Tessalon Perle] 200 mg PO TID PRN #30 capsule 01/06/24 Ondansetron Odt [Zofran Odt] 4 mg PO Q8HR PRN #20 tab 01/06/24 Cephalexin [Keflex] 500 mg PO Q6HR 7 Days #28 cap 09/09/24 Metoclopramide [Reglan] 10 mg PO Q6H PRN #30 tab 09/09/24 Ondansetron Odt [Zofran Odt] 4 mg PO Q8HR PRN #14 tab 09/14/24 Doxylamine Succinate/Vit B6 1 each PO Q8H #21 tab 10/06/24 [Doxylamine-Pyridoxine 10-10 mg] Allergies Allergy/AdvReac Type Severity Reaction Status Date / Time No Known Allergies Allergy Verified 09/14/24 06:28 Review of Systems ROS Statement: Those systems with pertinent positive or pertinent negative responses have been documented in the HPI. ROS Other: All systems not noted in ROS Statement are negative. Past Medical History Past Medical History: No Reported History History of Any Multi-Drug Resistant Organisms: None Reported Past Surgical History: No Surgical Hx Reported Past Psychological History: No Psychological Hx Reported Smoking Status: Vaper Past Alcohol Use History: None Reported Past Drug Use History: Marijuana General Exam Limitations: no limitations Respiratory exam: Present: normal lung sounds bilaterally. Absent: respiratory distress, wheezes, rales, rhonchi, stridor Cardiovascular Exam: Present: regular rate, normal rhythm, normal heart sounds. Absent: systolic murmur, diastolic murmur, rubs, gallop, clicks GI/Abdominal exam: Present: soft, normal bowel sounds. Absent: distended, tenderness, guarding, rebound, rigid Extremities exam: Present: normal inspection, full ROM, normal capillary refill. Absent: tenderness, pedal edema, joint swelling, calf tenderness Skin exam: Present: warm, dry, intact, normal color. Absent: rash Course Vital Signs 10/06/24 10/06/24 11:53 13:56 Temperature 98.3 F 98.4 F Pulse Rate 92 77 Respiratory 20 16 Rate Blood Pressure 147/88 138/88 O2 Sat by Pulse 99 97 Oximetry Medical Decision Making - Medical Decision Making Was pt. sent in by a medical professional or institution (, PA, MANUFACTURING ELECTRICIAN, urgent ca re, hospital, or long term...) When possible be specific @ -No Did you speak to anyone other than the patient for history (EMS, parent, family, police, friend...)? What history was obtained from this source @ -No Did you review nursing and triage notes (agree or disagree)? Why? @ -I reviewed and agree with nursing and triage notes Were old charts reviewed (outside hosp., previous admission, EMS record, old EKG, old radiological studies, urgent care reports/EKG's, long term records)? Report findings @ -No old charts were reviewed Differential Diagnosis (chest pain, altered mental status, abdominal pain women, abdominal pain men, vaginal bleeding, weakness, fever, dyspnea, syncope, he adache, dizziness, GI bleed, back pain, seizure, CVA, palpatations, mental health, musculoskeletal)? @ -Differential Abdominal Pain Women: Appendicitis, Cholecystitis, diverticulosis, ischemic bowel, pancreatitis, hepatitis, UTI, gastroenteritis, AAA, incarcerated hernia, bowel obstruction, constipation, inflammatory bowel, hepatitis, peptic ulcer disease, splenic infarction, perforated viscus, vulvitis, ovarian torsion, PID, kidney stone, placenta abruption, this is not meant to be an all-inclusive list EKG interpreted by me (3pts min.). @ -None X-rays interpreted by me (1pt min.). @ -None done CT interpreted by me (1pt min.). @ -None done U/S interpreted by me (1pt. min.). @ -None done What testing was considered but not performed or refused? (CT, X-rays, U/S, labs)? Why? @ -None What meds were considered but not given or refused? Why? @ -None Did you discuss the management of the patient with other professionals (professionals i.e. , PA, MANUFACTURING ELECTRICIAN, lab, RT, psych nurse, social service coordinator, caster operator, teacher, fisheries officer, bilingual patient support caseworker)? Give summary @ -No Was smoking cessation discussed for >3mins.? @ -No Was critical care preformed (if so, how long)? @ -No Were there social determinants of health that impacted care today? How? (Homelessness, low income, unemployed, alcoholism, drug addiction, transportation, low edu. Level, literacy, decrease access to med. care, group home, rehab)? @ -No Was there de-escalation of care discussed even if they declined (Discuss DNR or withdrawal of care, Hospice)? DNR status @ -No What co-morbidities impacted this encounter? (DM, HTN, Smoking, COPD, CAD, Cancer, CVA, ARF, Chemo, Hep., AIDS, mental health diagnosis, sleep apnea, morbid obesity)? @ -None Was patient admitted / discharged? Hospital course, mention meds given and route, prescriptions, significant lab abnormalities, going to OR and other pertinent info. @ -Discharge. 19-year-old female presenting at 10 weeks gestation with nausea and vomiting. Patient's abdominal examination is unremarkable. Patient has clinical signs of dehydration and is symptomatically treated with 2 L of IV fluids in addition to Zofran for antiemetic purposes. Labs reveal leukocytosis of 14.85 with left shift neutrophils of 13.38 likely reactive secondary to emesis. CMP is unremarkable. Urinalysis reveals 4+ ketones consistent with dehydration. No signs of infection. On reevaluation after medications patient states that she is feeling well and is tolerating oral intake. Recommend that she follow clear liquid diet over the next 24 hours and after slowly reintroducing foods. She is provided with prescription for vitamin B6 and doxylamine for nausea during and is instructed to follow-up as scheduled on Thursday with OB for further evaluation. Case discussed with my at tending Dr. Nagel. Undiagnosed new problem with uncertain prognosis? @ -No Drug Therapy requiring intensive monitoring for toxicity (Heparin, Nitro, Insulin, Cardizem)? @ -No Were any procedures done? @ -No Diagnosis/symptom? @ -hyperemesis gravidarum Acute, or Chronic, or Acute on Chronic? @ -acute Uncomplicated (without systemic symptoms) or Complicated (systemic symptoms)? @ -uncomplicated Side effects of treatment? @ -No Exacerbation, Progression, or Severe Exacerbation? @ -No Poses a threat to life or bodily function? How? (Chest pain, [place], [place], pneumonia, PE, COPD, DKA, ARF, appy, cholecystitis, CVA, Diverticulitis, Homicidal, Suicidal, threat to staff... and all critical care pts) @ -No - Lab Data Result diagrams: 10/06/24 12:28 10/06/24 12:28 Lab Results 10/06/24 10/06/24 10/06/24 Range/Units 12:28 12:28 12:28 WBC 14.85 H (4.50-10.00) 10*3/uL RBC 5.02 (4.10-5.20) 10*6/uL Hgb 15.1 H (12.0-15.0) g/dL Hct 43.0 (37.2-46.3) % MCV 85.7 (80.0-97.0) fL MCH 30.1 (27.0-32.0) pg MCHC 35.1 (32.0-37.0) g/dL Plt Count 349 (140-440) 10*3/uL MPV 9.9 (9.5-12.2) fL Immature Gran % (Auto) 0.3 % Neutrophils % 89.7 % Lymphocytes % 6.5 % Monocytes % 3.4 % Eosinophils % 0.0 % Basophils % 0.1 % Immature Gran # 0.05 H (0.00-0.04) 10*3/uL Neutrophils # 13.32 H (1.80-7.70) 10*3/uL Lymphocytes # 0.96 (0.90-5.00) 10*3/uL Monocytes # 0.50 (0.20-1.00) 10*3/uL Eosinophils # 0.00 L (0.04-0.35) 10*3/uL Basophils # 0.02 (0.00-0.10) 10*3/uL Sodium 137 (137-145) mmol/L Potassium 4.1 (3.5-5.1) mmol/L Chloride 100 (98-107) mmol/L Carbon Dioxide 19 L (22-30) mmol/L Anion Gap 18 mmol/L BUN 8 (7-17) mg/dL Creatinine 0.53 (0.52-1.04) mg/dL Est GFR (CKD-EPI)AfAm >90 (>60 ml/min/1.73 sqM) Est GFR (CKD-EPI)NonAf >90 (>60 ml/min/1.73 sqM) Glucose 122 H (74-99) mg/dL Calcium 10.7 H (8.4-10.2) mg/dL Magnesium 1.9 (1.6-2.3) mg/dL Total Bilirubin 1.1 (0.2-1.3) mg/dL AST 27 (14-36) U/L ALT 26 (4-34) U/L Alkaline Phosphatase 90 (38-126) U/L Total Protein 8.4 H (6.3-8.2) g/dL Albumin 5.1 H (3.5-5.0) g/dL Lipase 30 (23-300) U/L Urine Color Yellow Urine Appearance Cloudy H (Clear) Urine pH 5.5 (5.0-8.0) Ur Specific [place] 1.028 (1.001-1.035) Urine Protein 1+ H (Negative) Urine Glucose (UA) Negative (Negative) Urine Ketones 4+ H (Negative) Urine Blood Negative (Negative) Urine Nitrite Negative (Negative) Urine Bilirubin Negative (Negative) Urine Urobilinogen 3.0 (<2.0) mg/dL Ur Leukocyte Esterase Negative (Negative) Urine RBC 2 (0-5) /hpf Urine WBC 3 (0-5) /hpf Ur Squamous Epith Cells 3 (0-4) /hpf Urine Bacteria Few H (None) /hpf Urine Mucus Many H (None) /hpf Disposition Clinical Impression: Hyperemesis gravidarum, Dehydration Disposition: HOME SELF-CARE Condition: Good Instructions (If sedation given, give patient instructions): Hyperemesis Gravidarum (ED) Additional Instructions: Please return to the Emergency Department if symptoms worsen or any other concerns. Prescriptions: Doxylamine Succinate/Vit B6 [Doxylamine-Pyridoxine 10-10 mg] 1 each PO Q8H #21 tab Is patient prescribed a controlled substance at d/c from ED?: No Referrals: None,Stated [Primary Care Provider] - 1-2 days Time of Disposition: 13:38
[2024-10-06] MEDS: SODIUM CHLORIDE 0.9% 1,000 ML IV SCH (12:39)
[2024-10-06] MEDS: ONDANSETRON 4 MG/2 ML VIAL IVP STA (12:40)
[2024-10-06 12:47] LABS: Basophils # (A) 0.02 10*3/uL (0.00-0.10); Basophils % (A) 0.1 %; Eosinophils # (A) 0.00 10*3/uL (0.04-0.35); Eosinophils % (A) 0.0 %; HCT 43.0 % (37.2-46.3); HGB 15.1 g/dL (12.0-15.0); Lymphocytes # (A) 0.96 10*3/uL (0.90-5.00); Lymphocytes % (A) 6.5 %; MCH 30.1 pg (27.0-32.0); MCHC 35.1 g/dL (32.0-37.0); MCV 85.7 fL (80.0-97.0); Monocytes # (A) 0.50 10*3/uL (0.20-1.00); Monocytes % (A) 3.4 %; Neutrophils # (A) 13.32 10*3/uL (1.80-7.70); Neutrophils % (A) 89.7 %; Platelet Count 349 10*3/uL (140-440); RBC 5.02 10*6/uL (4.10-5.20); RDW 13.0 % (11.5-14.5); WBC 14.85 10*3/uL (4.50-10.00)
[2024-10-06 13:03] LABS: ALT 26 U/L (4-34); AST 27 U/L (14-36); African American GFR (CKD) >90 (>60 ml/min/1.73 sqM); Albumin 5.1 g/dL (3.5-5.0); Alkaline Phosphatase 90 U/L (38-126); Anion Gap 18 mmol/L; Blood Urea Nitrogen 8 mg/dL (7-17); Calcium 10.7 mg/dL (8.4-10.2); Carbon Dioxide 19 mmol/L (22-30); Chloride 100 mmol/L (98-107); Glucose 122 mg/dL (74-99); Lipase 30 U/L (23-300); Magnesium 1.9 mg/dL (1.6-2.3); Non-African American GFR(CKD) >90 (>60 ml/min/1.73 sqM); Potassium 4.1 mmol/L (3.5-5.1); Sodium 137 mmol/L (137-145); Total Protein 8.4 g/dL (6.3-8.2)
[2024-10-06 13:08] LABS: Bacteria,Urine Few /hpf; Bilirubin,Urine Negative (Negative); Blood,Urine Negative (Negative); Color,Urine Yellow; Glucose,Urine (UA) Negative (Negative); Ketones,Urine 4+ (Negative); Leukocyte Esterase,Urine Negative (Negative); Mucus,Urine Many /hpf; Nitrite,Urine Negative (Negative); PH, Urine 5.5 (5.0-8.0); Protein,Urine 1+ (Negative); RBC,Urine 2 /hpf (0-5); Specific Gravity,Urine 1.028 (1.001-1.035); Squamous Epithelial Cell,Urine 3 /hpf (0-4); Urobilinogen,Urine 3.0 mg/dL (<2.0); WBC,Urine 3 /hpf (0-5)
[2024-10-06 13:57] VITALS: BP 138/88; PULSE 77; RESP 16; TEMP 98.4
== END 2024-10-06 13:57 | disposition home or self-care (01) ==
LOC: EC 11:33
DX: O21.0 Mild hyperemesis gravidarum (principal); E86.0 Dehydration; O99.331 Smoking (tobacco) complicating pregnancy, first trimester; F17.290 Nicotine dependence, other tobacco product, uncomplicated; Z3A.10 10 weeks gestation of pregnancy
CPT/HCPCS: 36415; 80053; 83690; 83735; 85025; 81001; 99284; 96374; 96361; J2405